=== PATIENT | male | born 2000 | race Two or more races ===

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

== ENCOUNTER 2024-10-05 16:41 | Emergency (ER) | payer OTHER ==
[~2024-10-05] VITALS: Ht 172.7 cm; Wt 122.5 kg
[2024-10-05] MEDS ORDERED: ONDANSETRON HCL/PF 4 MG/2 ML VIAL ONE (17:32)
[2024-10-05] MEDS ORDERED: DICYCLOMINE HCL INJ 20 MG/2 ML AMPUL IM ONE (17:32)
[2024-10-05] MEDS ORDERED: KETOROLAC TROMETHAMINE 15 MG/ML VIAL ONE (17:32)
[2024-10-05 17:37] LABS: HEMATOCRIT 45 % (39-51); HEMOGLOBIN 14.8 g/dL (13.5-17.5); MEAN CORPUSCULAR HEMOGLOBIN 28 PG (26.0-33.0); MEAN CORPUSCULAR HGB CONC 33 g/dl (31.0-36.0); MEAN CORPUSCULAR VOLUME 84 fL (80-96); RED BLOOD CELL COUNT(AUTO) 5.32 MIL/uL (4.5-6.0); RED CELL DISTRIBUTION WIDTH 13.7 % (11.5-15.0); WHITE BLOOD COUNT (AUTO) 6.3 K/uL (4.3-11.0)
[2024-10-05 17:38] LABS: BASOPHILS % (AUTO) 0.4 % (0.0-2.0); EOSINOPHILS # (AUTO) 0.1 K/uL (0.0-0.7); EOSINOPHILS % (AUTO) 0.9 % (0.0-6.0); LYMPHOCYTES # (AUTO) 1.5 K/uL (0.8-4.8); LYMPHOCYTES % (AUTO) 23.9 % (20.0-44.0); MONOCYTES # (AUTO) 0.5 K/uL (0.1-1.30); MONOCYTES % (AUTO) 8.6 % (2.0-12.0); NEUTROPHILS # (AUTO) 4.1 K/uL (1.8-8.9); NEUTROPHILS % (AUTO) 66.2 % (43.0-81.0); PLATELET COUNT (AUTO) 238 K/uL (150-450)
[2024-10-05] MEDS: DICYCLOMINE HCL INJ 20 MG/2 ML AMPUL IM ONE (17:39)
[2024-10-05] MEDS: IV NS 0.9% 1,000 ML BAG IV ONE (17:39)
[2024-10-05] MEDS: ONDANSETRON HCL/PF 4 MG/2 ML VIAL IVP ONE (17:40)
[2024-10-05] MEDS: KETOROLAC TROMETHAMINE 15 MG/ML VIAL IV ONE (17:40)
[2024-10-05 17:48] LABS: POTASSIUM 3.5 mmol/L (3.5-5.1)
[2024-10-05 17:52] LABS: ALBUMIN 3.9 g/dL (3.4-5.0); BILIRUBIN,DIRECT 0.1 mg/dL (0.0-0.2); BILIRUBIN,TOTAL 0.4 mg/dL (0.2-1.0); TOTAL PROTEIN, SERUM 7.5 g/dL (6.4-8.2)
[2024-10-05] MEDS ORDERED: DICY10CA37 PO (17:55)
[2024-10-05] MEDS ORDERED: ONDA4TAB11 PO (17:55)
[2024-10-05 18:13] VITALS: BP 112/78; TEMP 98.1; O2SAT 93
== END 2024-10-05 18:15 | disposition home or self-care (01) ==
LOC: ER 16:42
DX: R10.84 Generalized abdominal pain (principal); R19.7 Diarrhea, unspecified; R11.2 Nausea with vomiting, unspecified; J45.909 Unspecified asthma, uncomplicated
CPT/HCPCS: 99284; 96374; 96361; 96375; 85025; 80048; 83690; 80076; 36415; 96372; J2405; J7030; J0500; J1885